=== PATIENT | male | born 1965 | race Native Hawaiian/Other Pacific Islander ===

== ENCOUNTER 2016-12-26 18:33 | Inpatient (IN) | payer OTHER ==
[~2016-12-26] VITALS: Ht 177.8 cm; Wt 119.9 kg
[~2016-12-26 18:33] MED LIST: AMLO5TAB PO; METOPROLOL25 M1 OR; PANT40TA PO; PRAVACHOL20 MG PO; QUET300T PO; SERT100T PO; UNITH DIRECT75 MCG OR; [UNRECOGNIZED DRUG - CODE] SL
[2016-12-26 21:21] LABS: PLATELET COUNT 174 K/uL (142-355)
[2016-12-26 21:38] LABS: PARTIAL THROMBOPLASTIN TIME 24.5 SECONDS (24.5-33.6)
[2016-12-26 21:47] LABS: POTASSIUM 3.4 mmol/L (3.6-5.2); SODIUM 136 mmol/L (136-145)
[2016-12-26 22:48] VITALS: BP 129/94; TEMP 97.6; Ht 177.8 cm; Wt 119.9 kg
[2016-12-27] VITALS: BP 142/61; TEMP 98
[2016-12-27 04:00] VITALS: BP 101/69; TEMP 97.7
[2016-12-27] MEDS ORDERED: LISI10TA11 PO (05:10)
[2016-12-27] MEDS ORDERED: HYDR12.54 PO (05:12)
[2016-12-27] MEDS ORDERED: GABA300C2 PO (05:12)
[2016-12-27] MEDS ORDERED: CLONIDINE0.2 MG PO (05:13)
[2016-12-27] MEDS ORDERED: AMOX500T5 PO (05:13)
[2016-12-27 08:00] VITALS: BP 186/73; TEMP 97.7
[2016-12-27 12:00] VITALS: BP 184/79; TEMP 97.6
[2016-12-27 16:00] VITALS: BP 176/92; TEMP 98.3
[2016-12-27 20:00] VITALS: BP 144/93; TEMP 98.2
[2016-12-28] VITALS: BP 156/94; TEMP 97.7
[2016-12-28 04:00] VITALS: BP 151/82; TEMP 97.4
[2016-12-28 05:01] LABS: PLATELET COUNT 150 K/uL (142-355)
[2016-12-28 05:04] LABS: POTASSIUM 3.6 mmol/L (3.6-5.2); SODIUM 133 mmol/L (136-145)
[2016-12-28 08:00] VITALS: BP 189/92; TEMP 97.4
[2016-12-28 12:00] VITALS: BP 188/89; TEMP 97.4
[2016-12-28 15:55] VITALS: BP 158/92; TEMP 97.6
[2016-12-28 20:00] VITALS: BP 138/82; TEMP 97.5
[2016-12-29 00:10] VITALS: BP 131/78; TEMP 98
[2016-12-29 04:00] VITALS: BP 115/75; TEMP 98.2
[2016-12-29 04:33] LABS: PLATELET COUNT 140 K/uL (142-355)
[2016-12-29 04:45] LABS: POTASSIUM 3.5 mmol/L (3.6-5.2); SODIUM 135 mmol/L (136-145)
[2016-12-29 08:23] VITALS: BP 144/80; TEMP 98.5
[2016-12-29 11:48] VITALS: BP 162/98; TEMP 97.8
[2016-12-29 16:16] VITALS: BP 160/92; TEMP 98.8
== END 2016-12-29 16:05 | disposition home or self-care (01) | DRG 947 ==
LOC: MED/SURG 18:33
PROVIDERS: Internal Medicine; ADMIT Family Medicine
DX: R60.1 Generalized edema (principal); K85.20 Alcohol induced acute pancreatitis without necrosis or infection; R74.8 Abnormal levels of other serum enzymes; F10.10 Alcohol abuse, uncomplicated; N50.89 Other specified disorders of the male genital organs; K70.0 Alcoholic fatty liver; E03.8 Other specified hypothyroidism; I10 Essential (primary) hypertension; K70.30 Alcoholic cirrhosis of liver without ascites
CPT/HCPCS: 36415; 80053; 80074; 81000; 82150; 83690; 83735; 84443; 85027; 85610; 85730; 86039; 86308; 86663; 86664; 86665; 86703; 86706; 87045; 87205; 87798; 87799; 87899; 93005; 96372; 96374; 96375; G0432; J1644; J2060; Q9963

== ENCOUNTER 2017-03-17 12:10 | Emergency (ER) | payer OTHER ==
[~2017-03-17] VITALS: Ht 177.8 cm; Wt 112.5 kg
[~2017-03-17 12:10] MED LIST changes: +AMOX500T5 PO; +CLONIDINE0.2 MG PO; +GABA300C2 PO; +HYDR12.54 PO; +LISI10TA11 PO
[2017-03-17 12:40] VITALS: BP 151/91; TEMP 98.5
== END 2017-03-17 13:35 | disposition left against medical advice (07) ==
LOC: ED 12:10
DX: S61.411A Laceration without foreign body of right hand, initial encounter (principal)
CPT/HCPCS: 99281